=== PATIENT | female | born 1995 | race Hispanic/Latino ===

== ENCOUNTER 2017-04-09 16:20 | Emergency (ER) | payer SELFPAY ==
[~2017-04-09] VITALS: Ht 165.1 cm; Wt 68.0 kg
[~2017-04-09 16:20] MED LIST: PRENATA3 PO
[2017-04-09] MEDS ORDERED: CEPHALEXIN500 M1 PO (16:47)
[2017-04-09] MEDS ORDERED: BACTRIM DS1 TAB PO (16:47)
[2017-04-09] MEDS ORDERED: MOTRIN400 MG PO (17:01)
[2017-04-09 17:10] VITALS: BP 131/77
== END 2017-04-09 17:10 | disposition home or self-care (01) | DRG 603 ==
LOC: ED 16:20
DX: L03.113 Cellulitis of right upper limb (principal); F17.210 Nicotine dependence, cigarettes, uncomplicated; F19.90 Other psychoactive substance use, unspecified, uncomplicated

== ENCOUNTER 2017-04-11 15:58 | Emergency (ER) | payer SELFPAY ==
[~2017-04-11] VITALS: Ht 165.1 cm; Wt 60.0 kg
[~2017-04-11 15:58] MED LIST changes: +BACTRIM DS1 TAB PO; +CEPHALEXIN500 M1 PO; +MOTRIN400 MG PO
[2017-04-11 16:31] LABS: HEMATOCRIT 39.1 % (37.0-47.0); HEMOGLOBIN 12.6 g/dl (12.0-16.0); IMMATURE GRANULOCYTES 1.2 % (0.0-1.0); MEAN CELL VOLUME 79.6 fL CALC (80.0-100.0); MEAN CORPUSCULAR HGB 25.7 pG CALC (26.0-32.0); MEAN CORPUSCULAR HGB CONC 32.2 g/L CALC (32.0-36.0); NEUT# 8.79 thou/uL (2.00-7.15); RED BLOOD COUNT 4.91 mill/uL (4.20-5.60); RED CELL DISTRI WIDTH 14.1 % (11.5-15.5)
[2017-04-11 16:33] LABS: URINE BILIRUBIN - DIPSTICK NEGATIVE (NEGATIVE); URINE BLOOD DIPSTICK NEGATIVE (NEGATIVE); URINE CLARITY CLEAR; URINE COLOR YELLOW; URINE GLUCOSE - DIPSTICK NEGATIVE (NEGATIVE); URINE KETONE NEGATIVE (NEGATIVE); URINE LEUK ESTERASE NEGATIVE (NEGATIVE); URINE NITRITE - DIPSTICK NEGATIVE (Negative); URINE PH 5.5 (4.5-8.0); URINE PROTEIN - DIPSTICK 30 mg/dL (NEG-TRACE); URINE SPECIFIC GRAVITY >=1.030; URINE UROBILINOGEN - DIPSTICK 0.2 E.U./dL (0.2)
[2017-04-11 16:34] LABS: URINE RBC 0-2 RBC/hpf (0-5); URINE SQUAMOUS EPITHELIAL CELL FEW EPI/hpf (0-FEW); URINE WBC 0-2 WBC/hpf (0-5)
[2017-04-11 16:35] LABS: COCAINE NEGATIVE (NEGATIVE); TETRAHYDROCANNABIONOL NEGATIVE (NEGATIVE)
[2017-04-11 16:36] LABS: BARBITURATES NEGATIVE (NEGATIVE); METHADONE NEGATIVE (NEGATIVE); OXCYCODONE NEGATIVE (NEGATIVE); TRICYLIC ANTIDEPRESSANTS NEGATIVE (NEGATIVE)
[2017-04-11 16:47] LABS: ALBUMIN 3.7 g/dL (3.2-5.0); ALKALINE PHOSPHATASE 298 u/l (38-126); ANION GAP 22 (6-22 (CALC)); BILIRUBIN, TOTAL 0.9 mg/dL (0.0-1.4); BUN 11 mg/dL (7-17); BUN/CREATININE RATIO 10 (12-20 (CALC)); CARBON DIOXIDE 21 mmol/l (22-30); CHLORIDE 100 mmol/l (95-108); CREATININE 1.1 mg/dL (0.5-1.0); ETHYL ALCOHOL 0 mg/dl (0-30); GFR > 60 ML/MIN (>=60 (CALC)); GFR FOR AFR.AMER. > 60 ML/MIN (>=60 (CALC)); GLUCOSE 140 mg/dL (65-105); POTASSIUM 3.7 mmol/l (3.5-5.1); SGOT/AST 40 u/l (14-36); SGPT/ALT 61 u/l (9-52); SODIUM 139 mmol/l (137-146); TOTAL PROTEIN 7.5 g/dL (6.3-8.2)
[2017-04-11 22:06] VITALS: BP 100/56
== END 2017-04-11 22:04 | disposition short-term general hospital (02) | DRG 897 ==
LOC: ED 15:58
PROVIDERS: Emergency Medicine
DX: F19.10 Other psychoactive substance abuse, uncomplicated (principal); R45.1 Restlessness and agitation; R00.0 Tachycardia, unspecified
CPT/HCPCS: J2060; S0166

== ENCOUNTER 2017-07-08 15:08 | Emergency (ER) | payer SELFPAY ==
[~2017-07-08] VITALS: Ht 165.1 cm; Wt 62.6 kg
[2017-07-08 15:24] VITALS: BP 124/76
== END 2017-07-08 15:28 | disposition left against medical advice (07) | DRG 951 ==
LOC: ED 15:08 → LWOBS 15:28 → ED 15:28
DX: Z91.19 Patient's noncompliance with other medical treatment and regimen (principal)

== ENCOUNTER 2018-01-08 10:46 | Emergency (ER) | payer SELFPAY ==
[~2018-01-08] VITALS: Ht 165.1 cm; Wt 75.0 kg
[2018-01-08] MEDS ORDERED: OPANA ER40 M1 PO (11:24)
[2018-01-08 12:07] LABS: URINE BILIRUBIN - DIPSTICK NEGATIVE (NEGATIVE); URINE BLOOD DIPSTICK NEGATIVE (NEGATIVE); URINE COLOR YELLOW; URINE GLUCOSE - DIPSTICK NEGATIVE (NEGATIVE); URINE KETONE 15 mg/dL (NEGATIVE); URINE NITRITE - DIPSTICK NEGATIVE (Negative); URINE PROTEIN - DIPSTICK NEGATIVE (NEG-TRACE); URINE SPECIFIC GRAVITY <=1.005; URINE UROBILINOGEN - DIPSTICK 0.2 E.U./dL (0.2)
[2018-01-08 12:10] LABS: URINE CLARITY SL CLOUDY; URINE LEUK ESTERASE SMALL (NEGATIVE)
[2018-01-08 12:11] LABS: URINE BACTERIA FEW hpf
[2018-01-08 12:12] LABS: BARBITURATES NEGATIVE (NEGATIVE); COCAINE NEGATIVE (NEGATIVE); METHADONE NEGATIVE (NEGATIVE); OXCYCODONE POSITIVE (NEGATIVE); TETRAHYDROCANNABIONOL NEGATIVE (NEGATIVE); TRICYLIC ANTIDEPRESSANTS NEGATIVE (NEGATIVE)
[2018-01-08 12:38] LABS: IMMATURE GRANULOCYTES 0.6 % (0.0-1.0); MEAN CORPUSCULAR HGB 27.8 pG CALC (26.0-32.0); MEAN CORPUSCULAR HGB CONC 33.9 g/L CALC (32.0-36.0); NEUT# 9.77 thou/uL (2.00-7.15); RED BLOOD COUNT 3.45 mill/uL (4.20-5.60); RED CELL DISTRI WIDTH 13.1 % (11.5-15.5)
[2018-01-08 12:50] LABS: HEMATOCRIT 28.3 % (37.0-47.0); HEMOGLOBIN 9.6 g/dl (12.0-16.0)
[2018-01-08 12:55] LABS: ANION GAP 14 (6-22 (CALC)); BUN 4 mg/dL (7-17); BUN/CREATININE RATIO 10 (12-20 (CALC)); CARBON DIOXIDE 17 mmol/l (22-30); CHLORIDE 107 mmol/l (95-108); CREATININE 0.4 mg/dL (0.5-1.0); GFR > 60 ML/MIN (>=60 (CALC)); GFR FOR AFR.AMER. > 60 ML/MIN (>=60 (CALC)); SODIUM 135 mmol/l (137-146)
[2018-01-08 15:00] VITALS: BP 94/45
[2018-01-08] MEDS ORDERED: MAGNESIUM OXID500 M1 PO (15:00)
== END 2018-01-08 15:00 | disposition home or self-care (01) | DRG 605 ==
LOC: ED 10:46
PROVIDERS: Family Medicine
DX: S30.1XXA Contusion of abdominal wall, initial encounter (principal); O99.322 Drug use complicating pregnancy, second trimester; F15.90 Other stimulant use, unspecified, uncomplicated; O99.332 Smoking (tobacco) complicating pregnancy, second trimester; F17.210 Nicotine dependence, cigarettes, uncomplicated; W10.9XXA Fall (on) (from) unspecified stairs and steps, initial encounter; Y93.9 Activity, unspecified; Y92.009 Unspecified place in unspecified non-institutional (private) residence as the place of occurrence of the external cause; Z3A.27 27 weeks gestation of pregnancy

== ENCOUNTER 2019-01-02 13:44 | Emergency (ER) | payer SELFPAY ==
[~2019-01-02] VITALS: Ht 165.1 cm; Wt 65.9 kg
[~2019-01-02 13:44] MED LIST changes: +MAGNESIUM OXID500 M1 PO; +OPANA ER40 M1 PO
[2019-01-02 13:48] VITALS: BP 133/98
[2019-01-02 14:37] LABS: IMMATURE GRANULOCYTES 0.3 % (0.0-5.0); MEAN CELL VOLUME 83.2 fL CALC (80.0-100.0); MEAN CORPUSCULAR HGB CONC 32.5 g/L CALC (32.0-36.0); NEUT# 5.95 thou/uL (2.00-7.15); RED BLOOD COUNT 5.66 mill/uL (4.20-5.60); RED CELL DISTRI WIDTH 13.4 % (11.5-15.5)
[2019-01-02 14:39] LABS: HEMATOCRIT 47.1 % (37.0-47.0); HEMOGLOBIN 15.3 g/dl (12.0-16.0)
[2019-01-02 14:47] LABS: BUN 12 mg/dL (7-17); BUN/CREATININE RATIO 22 (12-20 (CALC)); C-REACTIVE PROTEIN 6.6 mg/dL (0-0.9); CHLORIDE 109 mmol/l (95-108); CREATININE 0.6 mg/dL (0.5-1.0); GFR > 60 ML/MIN (>=60 (CALC)); GFR FOR AFR.AMER. > 60 ML/MIN (>=60 (CALC)); SODIUM 141 mmol/l (137-146)
[2019-01-02 14:48] LABS: ANION GAP 14 (6-22 (CALC)); CARBON DIOXIDE 22 mmol/l (22-30)
== END 2019-01-02 15:23 | disposition left against medical advice (07) | DRG 554 ==
LOC: ED 13:44
PROVIDERS: Family Medicine
DX: M12.562 Traumatic arthropathy, left knee (principal); M25.562 Pain in left knee; M25.462 Effusion, left knee; Z91.19 Patient's noncompliance with other medical treatment and regimen; X50.1XXA Overexertion from prolonged static or awkward postures, initial encounter; Y93.E1 Activity, personal bathing and showering; Y92.009 Unspecified place in unspecified non-institutional (private) residence as the place of occurrence of the external cause; F17.210 Nicotine dependence, cigarettes, uncomplicated